=== PATIENT | female | born 1965 | race Two or more races ===

== ENCOUNTER 2023-06-12 00:03 | Emergency (ER) | payer OTHER ==
[~2023-06-12] VITALS: Ht 162.6 cm; Wt 59.0 kg
[2023-06-12] MEDS ORDERED: BENADRYL25 MG PO (02:23)
[2023-06-12] MEDS ORDERED: PEPCID40 MG PO (02:23)
[2023-06-12] MEDS ORDERED: MEDROL8 MG PO (02:23)
== END 2023-06-12 02:29 ==
LOC: ER 00:03
DX: T78.40XA Allergy, unspecified, initial encounter (principal)